=== PATIENT | female | born 1965 ===

== ENCOUNTER 2022-10-22 13:10 | Emergency (ER) | payer OTHER ==
[2022-10-22] MEDS ORDERED: FENTANYL CITR 100 MCG/2 ML ONE (14:22)
[2022-10-22 14:35] LABS: Absolute Lymphocytes (CBC) 2.3 K/uL (0.7-4.9); Hematocrit 41.9 % (36.0-45.0); Lymphocytes % 26.7 % (15.3-44.8); MCV 90.7 fL (80-100); MPV 7.6 fL (7.6-11.3); RBC Red Blood Cell Count 4.62 M/uL (3.86-4.86)
[2022-10-22 14:47] LABS: Potassium 3.4 mEq/L (3.5-5.1); Troponin High Sensitivity 6.4 pg/mL (<58.9)
--- NOTE | 2022-10-22 14:51 | RAD REPORT ---
EXAM DESCRIPTION: RAD - Chest Single View - 10/22/2022 2:44 pm CLINICAL HISTORY: CHEST PAIN Chest pain. COMPARISON: No comparisons FINDINGS: Portable technique limits examination quality. The lungs are emphysematous but grossly clear. Soft tissue fullness is seen in the left hilar region. The heart is normal in size. Dual lead pacer device is present. IMPRESSION: COPD with soft tissue fullness in the left hilar region. CT chest followup would be help ful.
[2022-10-22] MEDS ORDERED: ALBUTEROL 2.5 MG/3 ML NEB SOL ONE (17:40)
[2022-10-22] MEDS ORDERED: IPRATROPIUM BROM 0.5MG/2.5ML ONE (17:42)
[2022-10-22] MEDS ORDERED: METHYLPREDNISOLONE 125 MG INJ ONE (17:56)
--- NOTE | 2022-10-22 18:21 | ER ---
Nurse's Notes [facility] Name: Zeny Tomlinson Age: 57 yrs Sex: Female : 1965 Arrival Date: 10/22/2022 Time: 13:10 Bed 16 Private MD: Diagnosis: Radiculopathy, cervical region;COPD/ Chronic obstructive pulmonary disease with (acute) exacerbation Presentation: 10/22 13:34 Chief complaint: Patient states: CP that radiates down R arm for 3-4 days. R hand is ll1 numb. Coronavirus screen: Vaccine status: Patient reports being unvaccinated. Client denies travel out of the [place] in the last 14 days. cough unrelated to allergies. Ebola Screen: Patient denies travel to an Ebola-affected area in the 21 days before illness onset. Initial Sepsis Screen: Does the patient meet any 2 criteria? No. Patient's initial sepsis screen is negative. Does the patient have a suspected source of infection? No. Patient's initial sepsis screen is negative. Risk Assessment: Do you want to hurt yourself or someone else? Patient reports no desire to harm self or others. Onset of symptoms was October 18, 2022. 13:34 Method Of Arrival: Ambulatory ll1 13:34 Acuity: MARCELLO 2 ll1 Triage Assessment: 13:40 General: Appears uncomfortable, Behavior is calm, cooperative, appropriate for age. ll1 Pain: Complains of pain in chest. Cardiovascular: Reports chest pain. Historical: - Allergies: 13:35 No Known Allergies; ll1 - PMHx: 13:35 COPD; ll1 - PSHx: 13:35 pacemaker; neck SX; ll1 - Immunization history:: Client reports having NOT received the Covid vaccine. - Social history:: Smoking status: Patient reports the use of cigarette tobacco products, smokes one-half pack cigarettes per day. Screenin:24 [facility] ED Fall Risk Assessment (Adult) History of falling in the last 3 months, nj1 including since admission No falls in past 3 months (0 pts) Confusion or Disorientation No (0 pts) Intoxicated or Sedated No (0 pts) Impaired Gait No (0 pts) Mobility Assist Device Used No (0 pt) Altered Elimination No (0 pt) Score/Fall Risk Level 0 - 2 = Low Risk Oriented to surroundings, Maintained a safe environment, Hourly rounding (assess needs \T\ fall precautionary measures) done. Abuse screen: Denies threats or abuse. Denies injuries from another. Nutritional screening: No deficits noted. Tuberculosis screening: No symptoms or risk factors identified. Assessment: 14:15 Reassessment: See triage assessment. nj1 15:00 Reassessment: Patient appears in no apparent distress at this time. Patient and/or nj1 family updated on plan of care and expected duration. Pain level reassessed. Patient is alert, oriented x 3, equal unlabored respirations, skin warm/dry/pink. 16:00 Reassessment: Patient appears in no apparent distress at this time. Patient and/or nj1 family updated on plan of care and expected duration. Pain level reassessed. Patient is alert, oriented x 3, equal unlabored respirations, skin warm/dry/pink. 17:45 Reassessment: Patient appears in no apparent distress at this time. Patient and/or nj1 family updated on plan of care and expected duration. Pain level reassessed. Patient is alert, oriented x 3, equal unlabored respirations, skin warm/dry/pink. Vital Signs: 13:34 BP 124 / 85; Pulse 103; Resp 20; Temp 97.8; Pulse Ox 100% ; Weight 54.43 kg; Height 5 ll1 ft. 4 in. ; Pain 10/10; 14:07 BP 135 / 82; Pulse 83; Resp 18; Pulse Ox 99% on R/A; nj1 15:00 Pain 8/10; nj1 15:06 BP 136 / 86; Pulse 78; Resp 15; Pulse Ox 96% ; nj1 15:59 BP 118 / 79; Pulse 82; Resp 16; Pulse Ox 95% ; Pain 8/10; nj1 17:45 BP 135 / 84; Pulse 82; Resp 19; Pulse Ox 100% on R/A; Pain 9/10; nj1 18:25 BP 139 / 84; Pulse 99; Resp 19; Pulse Ox 97% ; nj1 13:34 Body Mass Index 20.60 (54.43 kg, 162.56 cm) ll1 13:34 Pain Scale: Adult ll1 15:00 Pain Scale: Adult nj1 15:59 Pain Scale: Adult nj1 17:45 Pain Scale: Adult dc1 ED Course: 13:16 Patient arrived in ED. kj1 13:28 Shayy Gaspar NP is PHCP. aj3 13:28 Kale Espinal DO is Attending Physician. aj3 13:35 Triage completed. ll1 13:36 Arm band placed on. ll1 14:06 Nanci Coelho, RN is Primary Nurse. nj1 14:15 Inserted saline lock: 20 gauge in left antecubital area, using aseptic technique. Blood nj1 collected. 14:25 Provided Education on: fall precautions. nj1 14:25 Patient has correct armband on for positive identification. Bed in low position. Call [facility] light in reach. 14:45 XRAY Chest (1 view) In Process Unspecified. EDMS Administered Medications: 14:17 Drug: fentaNYL (PF) IVP 50 mcg Route: IVP; Site: left antecubital; nj1 15:00 Follow up: Pain 8/10 Adult; Response: No adverse reaction; Pain is decreased nj1 17:45 Drug: DuoNeb Nebulize (3:1) (2.5 mg - 0.5 mg) 3 ml Route: Nebulizer; dc1 17:45 Drug: MethylPrednisoLONE IVP 125 mg Route: IVP; Site: left antecubital; [facility] Outcome: 18:21 Discharge ordered by . aj3 19:43 Patient left the ED. Signatures: Dispatcher [employer] EDMS Ivy Gregory RN RN Caren Dinh kj1 Dewey Chung RN RN [facility] Shayy Gaspar NP PRINCIPAL ELECTRICAL ENGINEER aj3 Nanci Coelho, RN RN nj1 Corrections: (The following items were deleted from the chart) 16:00 15:59 BP 118 / 79; Pulse 82bpm; Resp 16bpm; Pulse Ox 95%; nj1 nj1 17:51 17:45 MethylPrednisoLONE IVP 125 mg IVP in right antecubital nj nj1
--- NOTE | 2022-10-22 18:22 | EDPHYS ---
Physician Documentation [facility] Name: Zeny Tomlinson Age: 57 yrs Sex: Female : 1965 Arrival Date: 10/22/2022 Time: 13:10 Bed 16 Private MD: ED Physician Kale Espinal HPI: 10/22 13:45 This 57 yrs old Female presents to ER via Ambulatory with complaints of Numbness - aj3 RIGHT ARM ,PAIN ALL OVER. 13:45 Patient is reporting pain to right side chest, shoulder and right arm has been hurting aj3 since this morning. She denies any shortness of breath, dizziness, nausea/vomiting, syncope.. Historical: - Allergies: 13:35 No Known Allergies; ll1 - PMHx: 13:35 COPD; ll1 - PSHx: 13:35 pacemaker; neck SX; ll1 - Immunization history:: Client reports having NOT received the Covid vaccine. - Social history:: Smoking status: Patient reports the use of cigarette tobacco products, smokes one-half pack cigarettes per day. ROS: 13:45 Constitutional: Negative for fever, chills, and weight loss. aj3 13:45 Respiratory: Negative for shortness of breath, cough, wheezing, and pleuritic chest pain, Skin: Negative for injury, rash, and discoloration, Neuro: Negative for syncope, headache, weakness, numbness, tingling, and seizure. 13:45 Neck: Positive for pain at rest. 13:45 Cardiovascular: Positive for chest pain, Negative for edema, orthopnea, palpitations. 13:45 MS/extremity: Positive for pain, Right arm. Exam: 13:45 Neck: Supple, full range of motion without nuchal rigidity. Cardiovascular: Regular aj3 rate and rhythm with a normal S1 and S2. No gallops, murmurs, or rubs. Normal PMI, no JVD. No pulse deficits. Respiratory: Lungs have equal breath sounds bilaterally, clear to auscultation and percussion. No rales, rhonchi or wheezes noted. No increased work of breathing, no retractions or nasal flaring. Skin: Warm, dry with normal turgor. Normal color with no rashes, no lesions, and no evidence of cellulitis. MS/ Extremity: Pulses equal, no cyanosis. Neurovascular intact. Full, normal range of motion. Neuro: Awake and alert, GCS 15, oriented to person, place, time, and situation. Motor strength 5/5 in all extremities. Sensory grossly intact. Normal gait. 13:45 Constitutional: The patient appears alert, awake, non-toxic, uncomfortable. 13:45 Chest/axilla: Palpation: tenderness, that is mild, Right chest. 17:48 ECG was reviewed by the Attending Physician. aj3 Vital Signs: 13:34 BP 124 / 85; Pulse 103; Resp 20; Temp 97.8; Pulse Ox 100% ; Weight 54.43 kg; Height 5 ll1 ft. 4 in. ; Pain 10/10; 14:07 BP 135 / 82; Pulse 83; Resp 18; Pulse Ox 99% on R/A; nj1 15:00 Pain 8/10; nj1 15:06 BP 136 / 86; Pulse 78; Resp 15; Pulse Ox 96% ; nj1 15:59 BP 118 / 79; Pulse 82; Resp 16; Pulse Ox 95% ; Pain 8/10; nj1 17:45 BP 135 / 84; Pulse 82; Resp 19; Pulse Ox 100% on R/A; Pain 9/10; nj1 18:25 BP 139 / 84; Pulse 99; Resp 19; Pulse Ox 97% ; nj1 13:34 Body Mass Index 20.60 (54.43 kg, 162.56 cm) ll1 13:34 Pain Scale: Adult ll1 15:00 Pain Scale: Adult nj1 15:59 Pain Scale: Adult nj1 17:45 Pain Scale: Adult nj1 MDM: 13:45 Differential diagnosis: STEMI, NSTEMI, cervical radiculopathy, neuropathy, pneumonia, aj3 COPD exacerbation. Data reviewed: vital signs, nurses notes, lab test result(s), radiologic studies, plain films. Independent interpretation of the following test(s) in the Emergency Department EKG: See my EKG interpretation above X-Ray: My interpretation is No opacities noted. Care significantly affected by the following chronic conditions: Chronic Obstructive Pulmonary Disease. Counseling: I had a detailed discussion with the patient and/or guardian regarding: the historical points, exam findings, and any diagnostic results supporting the discharge/admit diagnosis, the need for outpatient follow up, to return to the emergency department if symptoms worsen or persist or if there are any questions or concerns that arise at home. 13:58 Patient medically screened. 10/22 14:00 Order name: Basic Metabolic Panel; Complete Time: 15:19 10/22 14:00 Order name: CBC with Diff; Complete Time: 15:19 10/22 14:00 Order name: Troponin HS; Complete Time: 15:19 10/22 16:24 Order name: Troponin HS; Complete Time: 18:12 10/22 14:00 Order name: XRAY Chest (1 view); Complete Time: 15:19 10/22 14:00 Order name: EKG; Complete Time: 14:01 10/22 14:00 Order name: Cardiac monitoring; Complete Time: 14:06 10/22 14:00 Order name: EKG - Nurse/Tech; Complete Time: 14:06 10/22 14:00 Order name: IV Saline Lock; Complete Time: 14:23 10/22 14:00 Order name: Labs collected and sent; Complete Time: 14:10/22 14:00 Order name: O2 Per Protocol; Complete Time: 14:10/22 14:00 Order name: O2 Sat Monitoring; Complete Time: 14:06 EC:49 Rate is 80 beats/min. Rhythm is regular, Paced. Clinical impression: Atrial pacemaker, aj3 normal MO interval, normal QTc, normal axis, no ST elevation or depression, no T wave inversion. Interpreted by me. Reviewed by me. Administered Medications: 14:17 Drug: fentaNYL (PF) IVP 50 mcg Route: IVP; Site: left antecubital; nj 15:00 Follow up: Pain 8/10 Adult; Response: No adverse reaction; Pain is decreased nj1 17:45 Drug: DuoNeb Nebulize (3:1) (2.5 mg - 0.5 mg) 3 ml Route: Nebulizer; nj1 17:45 Drug: MethylPrednisoLONE IVP 125 mg Route: IVP; Site: left antecubital; nj1 Disposition: 17:50 Co-signature as Attending Physician, Kale PEDRO was immediately available on-site ms3 in the Emergency Department for consultation in the care of the patient. Disposition Summary: 10/22/22 18:21 Discharge Ordered Location: Home aj3 Problem: new aj3 Symptoms: have improved aj3 Condition: Stable aj3 Diagnosis - Radiculopathy, cervical region aj3 - COPD/ Chronic obstructive pulmonary disease with (acute) exacerbation aj3 Followup: aj3 - With: Private Physician - When: - Reason: Recheck today's complaints, Re-evaluation by your physician Discharge Instructions: - Discharge Summary Sheet aj3 - Cervical Radiculopathy aj3 Forms: - Medication Reconciliation Form aj3 - Thank You Letter aj3 - Antibiotic Education aj3 - Prescription Opioid Use aj3 - Patient Portal Instructions aj3 Prescriptions: - gabapentin 100 mg Oral capsule - take 1 capsule by ORAL route 3 times per day; 30 capsule; Refills: 0, Product aj3 Selection Permitted - Prednisone 20 mg Oral Tablet - take 2 tablets by ORAL route once daily for 5 days; 10 tablet; Refills: 0, aj3 Product Selection Permitted - methocarbamol 500 mg Oral Tablet - take 2 tablets by ORAL route 2 times per day; 20 tablet; Refills: 0, Product aj3 Selection Permitted Signatures: Dispatcher [employer] EDMS Dewey Chung, RN RN ll1 Kale Espinal, DO ms3 Shayy Gaspar, BATTERY TEST ENGINEER BATTERY TEST ENGINEER aj3 Nanci Coelho RN RN nj1 Corrections: (The following items were deleted from the chart) 20:20 14:00 This 57 yrs old Female presents to ER via Ambulatory with complaints of Numbness aj3 - RIGHT ARM ,PAIN ALL OVER. aj3
[2022-10-22 19:49] VITALS: TEMP 97.8
[2022-10-22 19:58] VITALS: BP 139/84; O2SAT 97
--- NOTE | 2022-10-23 13:11 | EKG ---
Test Date: 2022-10-22 Test Time: 13:49:45 [employer]: SUMIT MEASUREMENT RESULTS: Intervals: Rate: 80 OK: 116 QRSD: 78 QT: 368 QTc: 424 Herman: P: 59 OK: 116 QRS: 8 T: 67 INTERPRETIVE STATEMENTS: Electronic atrial pacemaker Septal infarct, age undetermined Abnormal ECG Compared to ECG 11/23/1993 06:55:00 Myocardial infarct finding now present Sinus rhythm no longer present Electronically Signed On 10-23-22 13:10:19 CDT by Jimmy Preciado
== END 2022-10-22 19:43 | disposition home or self-care (01) ==
LOC: ER 13:10
DX: M54.12 Radiculopathy, cervical region (principal); J44.1 Chronic obstructive pulmonary disease with (acute) exacerbation; F17.210 Nicotine dependence, cigarettes, uncomplicated; Z95.0 Presence of cardiac pacemaker
CPT/HCPCS: 93005; 85025; 80048; 36415; 84484 ×2; 71045; 94640; 96375; 96374; 99284; J7613; J7644; J3010; J2930

== ENCOUNTER 2022-11-05 16:06 | Emergency (ER) | payer OTHER ==
--- OUTSIDE RECORDS SUMMARY | 2022-11-05 16:18 | XMS REPORT | Continuity of Care Document ---
:1965 Author Organization [facility] t Address [address] [place] [address] [address] [place] [address] Care Team Providers Name Role Phone SUNI MCCLAIN Primary Care Physician Unavailable OMER RM Attending Clinician Unavailable OMER RM Attending Clinician Unavailable TINY ABDALLA Attending Clinician Unavailable TINY ABDALLA Attending Clinician Unavailable Gumaro Kaminski MD Attending Clinician NEGRO DE LEON Attending Clinician Unavailable GUMARO KAMINSKI Attending Clinician Unavailable MANJU MERCHANT Attending Clinician Unavailable Pob, Adc Lab Main Attending Clinician Unavailable Lamar Adhikari MD Attending Clinician LAMAR ADHIKARI Attending Clinician Unavailable Doctor Unassigned, [facility] Attending Clinician Unavailable Omer Rm DO Attending Clinician Mandeep Brooks MD Attending Clinician MANDEEP BROOKS Attending Clinician Unavailable MANDEEP BROOKS Attending Clinician Unavailable Mabel Ayon NP Attending Clinician MABEL AYON Attending Clinician Unavailable 2, Adc Lab Attending Clinician Unavailable Unknown, Attending Attending Clinician Unavailable Only, Adc Test Attending Clinician Unavailable Negro De Leon MD Attending Clinician GUMARO KAMINSKI Admitting Clinician Unavailable MABEL AYON Admitting Clinician Unavailable Payers Payer Name Policy Type Policy Number Effective Date Expiration Date S caterina [facility] [id number] 2021 PLUS 00:00:00 MEDICAID OF [place] [id number] 2021 00:00:00 Problems Condition Condition Condition Status Onset Resolution Last Treating Co mments Source Name Details Category Date Date Treatment Clinician Date Abdominal Abdominal Disease Active Uni vers pain, pain, 8-23 ity of right right 00:00: [place] lower lower 00 Medical quadrant quadrant Branch Pain Pain Disease Active Univers pelvic pelvic 10-20 ity of 00:00: [place] [facility] Post-menop Post-menop Disease Active U nivers ausal ausal 10-20 ity of bleeding bleeding 00:00: [place] [facility] Anxiety Anxiety Disease Active Overview: Univ ers 7 Formattin ity of 00:00: g of this [place] note Medical might be Branch different from the original. Formattin g of this note might be different from the original. Does not wish to start any meds at this time. Discussed breathing exercises and perhaps Calm Velia for assistanc e with meditatio n Smoker Smoker Disease Active Univers 09-22 ity of 00:00: [place] [facility] Chronic Chronic Disease Active Overview: Univ ers obstructiv obstructiv 09-22 Formattin ity of e e 00:00: g of this [place] pulmonary pulmonary 00 note Medi amanda disease disease might be Branch different from the original. Formattin g of this note might be different from the original. Info on Referral for pulmonolo gy given Chronic Chronic Disease Active Univers fatigue fatigue 08-20 ity of 00:00: [place] [address] Medical Branch Allergies, Adverse Reactions, Alerts Allergy Allergy Status Severity Reaction(s) Onset Inactive Treating Comm ents Source Name Type Date Date Clinician NO KNOWN Drug Active Univers ALLERGIE Class ity of S [facility] Social History Social Habit Start Date Stop Date Quantity Comments Source History of 1978-03-27 Cigarette Smoker Universi ty of tobacco use 00:00:00 [place] [facility] History [place] University o f Alcohol Frequency [place] M edical [facility] History [place] University o f Alcohol Std [place] Medical Drinks Branch History [facility] University o f Alcohol Binge [place] Medic al Branch Exposure to 2021-12-04 2021-12-14 Not sure University of SARS-CoV-2 00:00:00 09:06:00 [place] Medical (event) Branch Alcohol intake 2021-12-14 2021-12-14 Current drinker of Un iversity of 00:00:00 00:00:00 alcohol (finding) [facility] Cigarettes smoked 2021-10-18 2021-10-18 Univers ity of current (pack per 00:00:00 00:00:00 [facility]) - Reported Branch Tobacco use and 2021-10-18 2021-10-18 Smokeless tobacco Un iversity of exposure 00:00:00 00:00:00 non-user [facility] Alcohol Comment 2021-10-18 2021-10-18 occasionally Univers ity of 00:00:00 00:00:00 [facility] Sex Ass[birth year] At [birth year] Universit y of 00:00:00 00:00:00 [facility] Smoking Status Start Date Stop Date Source Smokes tobacco daily 2021-10-18 00:00:00 Univers ity of [facility] Medications Ordered Filled Start Stop Current Ordering Indication Dosage Frequency Signature Comments Components Source Medication Medication Date Date Medication? Clinician (SIG) Name Name ipratropium Yes [id number] 3mL Inhale 3 Univers -albuteroL 9-20 mL every 6 ity of 0.5 mg-3 00:00: (six) [place] mg(2.5 mg 00 hours as Medica l base)/3 mL needed for Bra nch nebulizer Wheezing. solution ipratropium 2021-0 Yes [id number] 3mL Inhale 3 Univers -albuteroL 9-20 mL every 6 ity of 0.5 mg-3 00:00: (six) [place] mg(2.5 mg 00 hours as Medica l base)/3 mL needed for Bra nch nebulizer Wheezing. solution ipratropium 2021-0 Yes [id number] 3mL Inhale 3 Univers -albuteroL 9-20 mL every 6 ity of 0.5 mg-3 00:00: (six) [place] mg(2.5 mg 00 hours as Medica l base)/3 mL needed for Bra nch nebulizer Wheezing. solution ipratropium 2021-0 Yes [id number] 3mL Inhale 3 Univers -albuteroL 9-20 mL every 6 ity of 0.5 mg-3 00:00: (six) [place] mg(2.5 mg 00 hours as Medica l base)/3 mL needed for Bra nch nebulizer Wheezing. solution ipratropium 2021-0 Yes [id number] 3mL Inhale 3 Univers -albuteroL 9-20 mL every 6 ity of 0.5 mg-3 00:00: (six) [place] mg(2.5 mg 00 hours as Medica l base)/3 mL needed for Bra nch nebulizer Wheezing. solution ipratropium 2022-0 Yes [id number] 3mL Inhale 3 Univers -albuteroL 9-20 mL every 6 ity of 0.5 mg-3 00:00: (six) [place] mg(2.5 mg 00 hours as Medica l base)/3 mL needed for Bra nch nebulizer Wheezing. solution atorvastati 2022-0 Yes 10mg Take 10 mg Univers n 10 mg 9-02 by mouth ity of tablet 08:07: at [place] [address] bedtime. Medical Branch methocarbam 2022-0 Yes 500mg Take 500 U nivers oL 500 mg 9-02 mg by ity of tablet 08:07: mouth 4 [place] [address] [address]) Medical times [place] daily. atorvastati 2022-0 Yes 10mg Take 10 mg Univers n 10 mg 9-02 by mouth ity of tablet 08:07: at [place] [address] bedtime. Medical Branch methocarbam 2022-0 Yes 500mg Take 500 U nivers oL 500 mg 9-02 mg by ity of tablet 08:07: mouth 4 [place] [address] [address]) Medical times [place] daily. atorvastati 2022-0 Yes 10mg Take 10 mg Univers n 10 mg 9-02 by mouth ity of tablet 08:07: at [place] [address] bedtime. Medical Branch methocarbam 2022-0 Yes 500mg Take 500 U nivers oL 500 mg 9-02 mg by ity of tablet 08:07: mouth 4 [place] [address] [address]) Medical times Branch daily. atorvastati 2022-0 Yes 10mg Take 10 mg Univers n 10 mg 9-02 by mouth ity of tablet 08:07: at [place] [address] bedtime. Medical Branch methocarbam 2022-0 Yes 500mg Take 500 U nivers oL 500 mg 9-02 mg by ity of tablet 08:07: mouth 4 [place] [address] [address]) Medical times Branch daily. atorvastati 2022-0 Yes 10mg Take 10 mg Univers n 10 mg 9-02 by mouth ity of tablet 08:07: at [place] [address] bedtime. Medical Branch methocarbam 2022-0 Yes 500mg Take 500 U nivers oL 500 mg 9-02 mg by ity of tablet 08:07: mouth 4 [place] [address] (four) Medical times Branch daily. atorvastati 2022-0 Yes 10mg Take 10 mg Univers n 10 mg 9-02 by mouth ity of tablet 08:07: at [place] [address] bedtime. Medical Branch methocarbam 2022-0 Yes 500mg Take 500 U nivers oL 500 mg 9-02 mg by ity of tablet 08:07: mouth 4 [place] [address] (four) Medical times Branch daily. atorvastati 2022-0 Yes 10mg Take 10 mg Univers n 10 mg 9-02 by mouth ity of tablet 08:07: at [place] [address] bedtime. Medical Branch methocarbam 2022-0 Yes 500mg Take 500 U nivers oL 500 mg 9-02 mg by ity of tablet 08:07: mouth 4 [place] [address] [address]) Medical times Branch daily. atorvastati 2022-0 Yes 10mg Take 10 mg Univers n 10 mg 9-02 by mouth ity of tablet 08:07: at [place] [address] bedtime. Medical Branch methocarbam 2022-0 Yes 500mg Take 500 U nivers oL 500 mg 9-02 mg by ity of tablet 08:07: mouth [address] [place] [address] [address]) Medical times Branch daily. PROAIR HFA 2021-0 Yes INHALE 2 Uni vers 90 7-20 PUFFS BY ity of mcg/actuati 00:00: MOUTH [place] on inhaler 00 EVERY 6 Medica l HOURS Branch NEEDED FOR WHEEZING PROAIR HFA 2021-0 Yes INHALE 2 Uni vers 90 7-20 PUFFS BY ity of mcg/actuati 00:00: MOUTH [place] on inhaler 00 EVERY 6 Medica l HOURS Branch NEEDED FOR WHEEZING PROAIR HFA 2021-0 Yes INHALE 2 Uni vers 90 7-20 PUFFS BY ity of mcg/actuati 00:00: MOUTH [place] on inhaler 00 EVERY 6 Medica l HOURS Branch NEEDED FOR WHEEZING PROAIR HFA 2021-0 Yes INHALE 2 Uni vers 90 7-20 PUFFS BY ity of mcg/actuati 00:00: MOUTH [place] on inhaler 00 EVERY 6 Medica l HOURS Branch NEEDED FOR WHEEZING PROAIR HFA 2022-0 Yes INHALE 2 Uni vers 90 7-20 PUFFS BY ity of mcg/actuati 00:00: MOUTH [place] on inhaler 00 EVERY 6 Medica l HOURS Branch NEEDED FOR WHEEZING PROAIR HFA 0 Yes INHALE 2 Uni vers 90 7-20 PUFFS BY ity of mcg/actuati 00:00: MOUTH [place] on inhaler 00 EVERY 6 Medica l HOURS Branch NEEDED FOR WHEEZING PROAIR HFA 0 Yes INHALE 2 Uni vers 90 7-20 PUFFS BY ity of mcg/actuati 00:00: MOUTH [place] on inhaler 00 EVERY 6 Medica l HOURS Branch NEEDED FOR WHEEZING PROAIR HFA 0 Yes INHALE 2 Uni vers 90 7-20 PUFFS BY ity of mcg/actuati 00:00: MOUTH [place] on inhaler 00 EVERY 6 Medica l HOURS Branch NEEDED FOR WHEEZING budesonide- 0 Yes 2{puff} Inhale 2 Univers formoteroL 5-27 Puffs 2 ity of 80-4.5 09:25: (two) [place] mcg/actuati 53 times Medical on inhaler daily. Branch budesonide- 2021-0 Yes 2{puff} Inhale 2 Univers formoteroL 5-27 Puffs 2 ity of 80-4.5 09:25: (two) [place] mcg/actuati 53 times Medical on inhaler daily. Branch budesonide- 2021-0 Yes 2{puff} Inhale 2 Univers formoteroL 5-27 Puffs 2 ity of 80-4.5 09:25: (two) [place] mcg/actuati 53 times Medical on inhaler daily. Branch budesonide- 2021-0 Yes 2{puff} Inhale 2 Univers formoteroL 5-27 Puffs 2 ity of 80-4.5 09:25: (two) [place] mcg/actuati 53 times Medical on inhaler daily. Branch budesonide- 2021-0 Yes 2{puff} Inhale 2 Univers formoteroL 5-27 Puffs 2 ity of 80-4.5 09:25: (two) [place] mcg/actuati 53 times Medical on inhaler daily. Branch budesonide- 2021-0 Yes 2{puff} Inhale 2 Univers formoteroL 5-27 Puffs 2 ity of 80-4.5 09:25: (two) [place] mcg/actuati 53 times Medical on inhaler daily. Branch budesonide- 2021-0 Yes 2{puff} Inhale 2 Univers formoteroL 5-27 Puffs 2 ity of 80-4.5 09:25: (two) [place] mcg/actuati 53 times Medical on inhaler daily. Branch budesonide- 2021-0 Yes 2{puff} Inhale 2 Univers formoteroL 5-27 Puffs 2 ity of 80-4.5 09:25: (two) [place] mcg/actuati 53 times Medical on inhaler daily. Branch Vital Signs Vital Name Observation Time Observation Value Comments Source Systolic blood 2021-12-14 14:38:00 124 mm[Hg] Univer sity of [facility] Diastolic blood 2021-12-14 14:38:00 84 mm[Hg] Unive rsity of [facility] Heart rate 2021-12-14 14:38:00 87 /min Universi ty [facility] Respiratory rate 2021-12-14 14:38:00 21 /min Univ ersity of [facility] Body height 2021-12-14 14:38:00 162.6 cm Universi ty [facility] Body weight 2021-12-14 14:38:00 56.201 kg Universi ty [facility] BMI 2021-12-14 14:38:00 21.27 kg/m2 Universi ty [facility] Oxygen saturation in 2021-12-14 14:38:00 98 /min [facility] Arterial blood by [facility] Pulse oximetry Branch Systolic blood 2021-12-03 13:13:00 125 mm[Hg] Univer sity of [facility] Diastolic blood 2021-12-03 13:13:00 83 mm[Hg] Unive rsity of [facility] Heart rate 2021-12-03 13:13:00 86 /min Universi ty of [facility] Body height 2021-12-03 13:13:00 162.6 cm Universi ty [facility] Body weight 2021-12-03 13:13:00 57.607 kg Universi ty [facility] BMI 2021-12-03 13:13:00 21.80 kg/m2 Universi ty [facility] Oxygen saturation in 2021-12-03 13:13:00 97 /min University Arterial blood by [facility] Pulse oximetry Branch Procedures Procedure Date / Time Performing Clinician Source Performed CONSENT/REFUSAL FOR 2021-12-29 15:34:54 Doctor Unassvanessa [facility] DIAGNOSIS AND TREATMENT [facility] [place] INSURANCE CORRESPONDENCE 2021-12-14 05:01:00 Doctor Unassigned, [facility] [place] Encounters Start End Encounter Admission Attending Care Care Encounter Source Date/Time Date/Time Type Type Clinicians Facility Department ID 2022-11-08 2022-11-08 Outpatient R OMER RM [facility] [id number] Univers 10:00:00 10:00:00 OMER RM i ty of [facility] 2022-10-06 2022-10-06 Outpatient R TINY ABDALLA [facility] [id number] Univers 14:20:00 14:20:00 [facility]BDALLA [facility] [place] [facility] 2022-08-31 2022-08-31 [facility] [id number] Univers 00:00:00 00:00:00 [facility] [id number] i angy [facility] [id number] Jill ENGIO [phone] [address] 2022-03-22 2022-03-22 Outpatient R OMER RM [facility] [id number] Univers 10:30:00 10:30:00 OMER RM i ty [facility] 2022-02-21 2022-02-21 Outpatient R MOISES [facility] [id number] Univers 10:00:00 10:00:00 NEGRO marte o f [facility] 2022-02-04 2022-02-04 Outpatient R GORDY [facility] [id number] Univers 09:00:00 09:00:00 GUMARO rosanna [facility] 2022-02-03 2022-02-03 Outpatient R GORDY [facility] [id number] Univers 09:40:00 09:40:00 GUMARO ity [facility] 2022-01-04 2022-01-04 Outpatient Mindy MERCHANT [facility] [id number] Univers 11:00:00 11:00:00 MANJU marte [facility] 2022-01-03 2022-01-03 Outpatient Mindy MERCHANT [facility] [id number] Univers 09:00:00 09:00:00 MANJU marte [facility] 2021-12-29 2021-12-29 [employer] Assembler Janett, Adc Lab Main [facility] [id number] Univers 10:45:00 11:00:00 Visit Onofre Lamar NGO [id number] ity of [id number] [id number] Md dical NAL 353 [facility] 2021-12-29 2021-12-29 Outpatient R ONOFRE [facility] [id number] Univers 10:45:00 10:45:00 LAMAR marte [facility] 2021-12-29 2021-12-29 Orders Doctor HYATT [id number] Univers 00:00:00 00:00:00 Only Unassigned, [place] [id number] ity [facility] [id number] [place] as [id number] [address] 2021-12-14 2021-12-14 Outpatient R OMER RM [facility] [id number] Univers 09:30:00 09:57:13 OMER RM i ty of [facility] 2021-12-14 2021-12-14 Office Adtii [facility] [id number] Univers 09:30:00 09:57:13 Visit Omer NGO [id number] i ty [facility] [id number] [id number] Md dical NAL 085 [facility] 2021-12-14 2021-12-14 Outpatient R OMER RM [facility] 10 [id number] Univers 09:30:00 09:30:00 OMER RM i ty of [facility] 2021-12-14 2021-12-14 Orders Doctor EDMAR [id number] Univers 00:00:00 00:00:00 Only Unassigned, [place] [id number] ity of [facility] [id number] [place] as [id number] [address] 2021-12-13 2021-12-13 Telephone Cecilia [facility] [id number] Univers 00:00:00 00:00:00 [facility] [id number] ity of [place] [id number] Jameson as SCARLETT?BLEA [id number] [address] OFFICE [facility] 2021-12-03 2021-12-03 Office Cecilia [facility] [id number] Univers 08:00:00 08:43:44 Visit [facility] [id number] ity of [place] [id number] Jameson as SCARLETT?BLEA [id number] [address] OFFICE [facility] 2021-12-03 2021-12-03 Outpatient R MANDEEP BROOKS [facility] [id number] Univers 08:00:00 08:43:44 MANDEEP BROOKS [facility] 2021-12-03 2021-12-03 Outpatient R MANDEEP BROOKS [facility] [id number] Univers 08:00:00 08:00:00 MANDEEP BROOKS [facility] 2021-11-26 2021-11-26 Outpatient Mindy KAMINSKI [facility] [id number] Univers 08:00:00 08:28:35 GUMARO [facility] 2021-11-26 2021-11-26 Office [facility] [id number] Univers 08:00:00 08:28:35 Visit [facility] [id number] i ty of [facility] [id number] [id number] [place] [address] [facility] 2021-11-19 2021-11-19 Outpatient Mindy KAMINSKI [facility] [id number] Univers 09:20:00 09:20:00 GUMARO ity of [facility] 2021-11-15 2021-11-15 [facility] [id number] Univers 15:15:00 15:15:00 Visit Mabel TORRES [id number] it y of [facility] [id number] [facility] [id number] [facility] CLINIC 134 Branch 2021-11-15 2021-11-15 Outpatient R SHIRAMABEL RAYMOND [facility] B [id number] Univers 15:15:00 15:13:51 [facility] BRIGHT rosanna [facility] 2021-11-12 2021-11-12 Outpatient R GORDY [facility] [id number] Univers 08:44:31 23:59:00 GUMARO ity [facility] 2021-11-12 2021-11-12 Outpatient R GORDY [facility] [id number] Univers 08:44:31 23:59:00 GUMARO ity of [facility] 2021-11-12 2021-11-12 Outpatient R GORDY [facility] [id number] Univers 09:20:00 09:20:00 GUMARO ity [facility] 2021-11-09 2021-11-09 Outpatient R MABEL AYON [facility] B [id number] Univers 14:53:12 23:59:00 [facility] BRIGHT kelvinhalie [facility] 2021-11-09 2021-11-09 [facility] [id number] Univers 14:53:12 23:59:00 Encounter Mabel HUBER [id number] ity of [place] [id number] [facility] [id number] [facility] 806 Branch 2021-11-05 2021-11-05 Outpatient R OMER RM [facility] 10 [id number] Univers 11:00:00 11:00:00 OMER RM i [facility] 2021-11-02 2021-11-02 [facility] 1.2.840.114 [id number] Univers 17:03:29 23:59:00 Encounter Mabel NGO [id number] ity of [place] [id number] [facility] [id number] [facility] 806 Branch 2021-11-02 2021-11-02 Outpatient R MABEL AYON [facility] B [id number] Univers 00:00:00 23:59:00 TRIMABEL TILLEY ity [facility] 2021-11-02 2021-11-02 Orders Doctor EDMAR [id number] [id number] Univers 00:00:00 00:00:00 Only Unassigned, [place] [id number] ity of [facility] [id number] [facility] [id number] [facility] 009 Branch 2021-10-18 2021-10-18 Outpatient R MABEL AYON [facility] B [id number] Univers 15:00:00 16:55:46 MABEL AYON ity [facility] 2021-10-18 2021-10-18 Office [facility] 1.2.840.114 [id number] Univers 15:00:00 16:55:46 Visit Floridatalat TORRES [id number] it y of [facility] [id number] [facility] [id number] [facility] 134 Branch 2021-10-12 2021-10-12 Outpatient R GORDY [facility] [id number] Univers 09:43:47 23:59:00 GUMARO ity of [facility] 2021-10-12 2021-10-12 [employer]er 2, Adc Lab [facility] 1.2.840.114 [id number] Univers 09:00:00 09:15:00 Visit Unknown, Attending HUBER [id number] 0 ity [facility] [id number] [facility] [phone] [address] 2021-10-11 2021-10-11 Laboratory Only, Adc Test [facility] 1.2.840. [id number] Univers 14:00:00 14:15:00 Only Lamar Adhikari HUBER [id number] ity of [place] [id number] [id number] [facility] [address] [place] 2021-10-11 2021-10-11 Outpatient R LEOAMBER [facility] [id number] Univers 14:00:00 14:00:00 LAMAR ithalie [facility] 2021-10-11 2021-10-11 Orders Doctor HYATT [id number] [id number] Univers 00:00:00 00:00:00 Only Unassigned, [place] [id number] ity of [facility] [id number] Jaemson as [id number] [facility] [address] [place] 2021-09-24 2021-09-24 Orders Doctor HYATT 1.2.840.114 [id number] Univers 00:00:00 00:00:00 Only Unassigned, [place] [id number] ity of [facility] [id number] Jameson as [id number] [address] 2021-09-17 2021-09-17 [facility] [id number] Univers 08:20:00 08:20:00 [facility] [place] [facility] 2021-08-20 2021-08-20 [employer] Assembler 2, Adc Lab [facility] 1.2.840.114 [id number] Univers 11:15:00 11:30:00 Visit Gumaro Kaminski [id number] ity of [place] [id number] [facility] [id number] [facility] [address] [facility] 2021-08-20 2021-08-20 Outpatient R GORDY [facility] [id number] Univers 11:15:00 11:15:00 GUMARO rosanna [facility] 2021-08-20 2021-08-20 [facility] [id number] Univers 09:40:00 09:44:29 [facility] [place] [facility] 2021-08-20 2021-08-20 Office Gordy [facility] 1.2.840.114 [id number] Univers 09:40:00 09:44:29 Visit [facility] [id number] i ty of [facility] [id number] [id number] Md dical NAL 9 [facility] 2021-08-20 2021-08-20 Outpatient R GORDY [facility] [id number] Univers 09:40:00 09:44:29 GUMARO ity [facility] 2021-08-13 2021-08-13 [facility] [id number] Univers 10:10:49 23:59:00 GUMARO ity [facility] 2021-04-09 2021-04-09 [facility] [id number] Univers 08:00:00 08:00:00 NEGRO cortez [facility] 2021-02-17 2021-02-17 Office [facility] [id number] Univers 09:44:24 10:13:40 Visit Negro [place] [id number] ity [facility] [id number] [id number] [address] 2021-02-17 2021-02-17 Outpatient R MOISES [facility] [id number] Univers 09:40:00 10:13:40 NEGRO cortez [facility] 2008-07-03 2008-07-03 Outpatient [facility] [id number] Univers 00:00:00 12:23:59 1 [facility] [place] [facility] This patient has no known results.
[2022-11-05 16:54] LABS: Absolute Lymphocytes (CBC) 2.7 K/uL (0.7-4.9); Hematocrit 32.9 % (36.0-45.0); Lymphocytes % 23.8 % (15.3-44.8); MPV 7.4 fL (7.6-11.3); Platelets 338 thou/uL (152-406); RBC Red Blood Cell Count 3.66 M/uL (3.86-4.86)
[2022-11-05] MEDS ORDERED: IPRATROPIUM BROM 0.5MG/2.5ML ONE ×2 (17:04→19:01)
[2022-11-05] MEDS ORDERED: ALBUTEROL 2.5 MG/3 ML NEB SOL ONE ×2 (17:04→19:00)
[2022-11-05 17:06] LABS: Albumin 2.9 g/dL (3.4-5.0); Bilirubin Direct 0.1 mg/dL (0-0.2); Bilirubin Indirect, Calculated 0.5 mg/dL (0.2-0.8); Bilirubin Total 0.6 mg/dL (0.2-1.0); Magnesium 2.1 mg/dL (1.6-2.4); Potassium 3.4 mEq/L (3.5-5.1); Protein, Total 6.1 g/dL (6.4-8.2); Troponin High Sensitivity 6.5 pg/mL (<58.9)
--- NOTE | 2022-11-05 17:08 | RAD REPORT ---
EXAM DESCRIPTION: RADChest Single View11/05/2022 4:54 pm CLINICAL HISTORY: SOB COMPARISON: Chest Single View dated 10/22/2022 TECHNIQUE: Portable AP view of the chest. FINDINGS: The lungs are clear.Left chest wall pacer/AICD unchanged in place. No pneumothorax or effu marcello. The cardiomediastinal contours are stable, with stable left hilar prominence, may relate to vas cular tortuosity. IMPRESSION: No acute cardiopulmonary process. Stable findings as above.
--- NOTE | 2022-11-05 18:19 | RAD REPORT ---
EXAM DESCRIPTION: CT - Chest For Pe Angio - 11/05/2022 5:35 pm CLINICAL HISTORY: Chest pain;SOB COMPARISON: Chest Single View dated 11/05/2022; Chest Single View dated 10/22/2022 TECHNIQUE: Thin axial CT images of the chest were obtained following administration of 100 mL Isovue 370 IV contrast. Multiplanar reconstructions, and maximum intensity projection reconstructions were generated and reviewed. Exam utilizes a protocol for optimal evaluation of pulmonary arterial tree. All CT scans are performed using dose optimization technique as appropriate and may include automated exposure control or mA/KV adjustment according to patient size. FINDINGS: Pulmonary arteries are normal. No emboli or other suspicious finding. No acute or signific ant aorta findings. Large left hilar mass with crescentic soft tissue extension along the lateral wall of the descending thoracic aorta, measuring 5.7 x 5.3 cm in greatest caliber. This is contiguous with subcarinal adenop athy, with dawna mass measuring up to 4.0 x 3.5 cm. Other enlarged PA window, prevascular, and medias tinal lymph nodes. There is some mass effect with mild narrowing of the left main bronchus, near comp lete attenuation of some of the bronchial branches to the left lower lobe and lower segments of the u pper lobe, and narrowing of the left inferior more than superior pulmonary veins. No other suspicious mass or infiltrate in the lung parenchyma. Bibasilar atelectatic changes, includi ng some atelectatic changes in the regions involved by bronchial narrowing. No pleural thickening or pleural effusion. No pneumothorax. No chest wall mass or abnormal axilliary lymphadenopathy. IMPRESSION: No evidence of acute central pulmonary emboli. Large left hilar mass, with contiguous mediastinal adenopathy as above. Findings raise concern for ma lignancy, including but not limited to lymphoma. There is mass effect with mild narrowing of the left main bronchus and some of its branches, with adrienne e distal atelectatic changes, as well as narrowing of the left lower more than upper pulmonary veins.
[2022-11-05] MEDS ORDERED: METHYLPREDNISOLONE 125 MG INJ ONE (19:00)
--- NOTE | 2022-11-05 19:35 | ER ---
Nurse's Notes [facility] Name: Zeny Tomlinson Age: 57 yrs Sex: Female : 1965 Arrival Date: 11/05/2022 Time: 16:06 Bed 18 Private MD: Diagnosis: Dyspnea Presentation: 11/05 16:08 Chief complaint: EMS states: toned out to home by family, pt SOB and c/o right arm and eh3 neck pain. Was seen her last week and sent home with antibiotics for lung infection. Ebola Screen: No symptoms or risks identified at this time. Onset of symptoms was November 05, 2022. 16:08 Method Of Arrival: EMS: [facility] 3 16:08 Acuity: MARCELLO 3 eh3 16:08 Coronavirus screen: Vaccine status: Patient reports being unvaccinated. Initial Sepsis eh3 Screen: Does the patient meet any 2 criteria? No. Patient's initial sepsis screen is negative. Does the patient have a suspected source of infection? No. Patient's initial sepsis screen is negative. Risk Assessment: Do you want to hurt yourself or someone else? Patient reports no desire to harm self or others. Triage Assessment: 16:08 General: Appears in no apparent distress. uncomfortable, Behavior is calm, cooperative, eh3 appropriate for age. Pain: Complains of pain in neck Pain radiates to right arm. Neuro: Level of Consciousness is awake, alert, obeys commands, Oriented to person, place, time, situation. Cardiovascular: Capillary refill < 3 seconds Patient's skin is warm and dry. Respiratory: Reports shortness of breath at rest Airway is patent Respiratory effort is even, unlabored, Respiratory pattern is regular, symmetrical, Onset: The symptoms/episode began/occurred last week, the patient has mild shortness of breath. GI: Abdomen is round non-distended. Derm: Skin is pink, warm \T\ dry. Musculoskeletal: Circulation, motion, and sensation intact. Historical: - Allergies: 16:08 No Known Allergies; eh3 - PMHx: 16:08 COPD; eh3 - PSHx: 16:08 Neck sx; pacemaker; eh3 - Immunization history:: Adult Immunizations up to date. - Social history:: Smoking status: unknown. Screenin:15 [facility] ED Fall Risk Assessment (Adult) Score/Fall Risk Level 0 - 2 = Low Risk. Abuse eh3 screen: Denies threats or abuse. Denies injuries from another. Nutritional screening: No deficits noted. Tuberculosis screening: No symptoms or risk factors identified. Assessment: 16:15 Reassessment: No changes from previously documented assessment. See triage assessment. eh3 Cardiovascular: Rhythm is atrial pacer with capture. Respiratory: Airway is patent Respiratory effort is even, unlabored, Breath sounds are clear bilaterally. 17:15 Reassessment: Patient appears in no apparent distress at this time. Patient and/or eh3 family updated on plan of care and expected duration. Pain level reassessed. Patient is alert, oriented x 3, equal unlabored respirations, skin warm/dry/pink. 18:15 Reassessment: Patient appears in no apparent distress at this time. Patient and/or eh3 family updated on plan of care and expected duration. Pain level reassessed. Patient is alert, oriented x 3, equal unlabored respirations, skin warm/dry/pink. 19:15 Reassessment: Patient appears in no apparent distress at this time. Patient and/or eh3 family updated on plan of care and expected duration. Pain level reassessed. Patient is alert, oriented x 3, equal unlabored respirations, skin warm/dry/pink. 19:30 Reassessment: Pt ambulated around hallways approximately 50ft, SpO2 ranged between 3 91-94%. Vital Signs: 16:08 BP 103 / 68; Pulse 89; Resp 18; Temp 98.2; Pulse Ox 100% on R/A; eh3 17:15 BP 105 / 75; Pulse 75; Resp 18; Pulse Ox 100% on R/A; eh3 18:15 BP 113 / 75; Pulse 99; Resp 15; Pulse Ox 100% on R/A; eh3 19:15 BP 123 / 85; Pulse 90; Resp 18; Pulse Ox 96% on R/A; eh3 ED Course: 16:07 Patient arrived in ED. sb4 16:08 [facility] Wood[facility]. sb4 16:08 Bassam Kauffman MD is Attending Physician. sb4 16:08 Karla Lindquist, RN is Primary Nurse. eh3 16:08 Arm band placed on. eh3 16:09 Triage completed. eh3 16:15 Patient has correct armband on for positive identification. Bed in low position. Call eh3 light in reach. Side rails up X2. Provided Education on: Use of call aguiar. Client placed on continuous cardiac and pulse oximetry monitoring. NIBP monitoring applied. 16:15 Maintain EMS IV. Dressing intact. Good blood return noted. Site clean \T\ dry. Gauge \T\ eh 3 site: 20g LFA. 16:56 XRAY Chest (1 view) In Process Unspecified. EDMS 17:37 Chest For PE Angio CT In Process Unspecified. EDMS 19:35 Jose Ramon Munoz MD is Referral Physician. sb4 19:45 No provider procedures requiring assistance completed. IV discontinued, intact, eh3 bleeding controlled, No redness/swelling at site. Pressure dressing applied. Administered Medications: 16:50 Drug: DuoNeb Nebulize (3:1) (2.5 mg - 0.5 mg) 3 ml Route: Nebulizer; eh3 17:00 Follow up: Response: No adverse reaction eh3 18:55 Drug: DuoNeb Nebulize (3:1) (2.5 mg - 0.5 mg) 3 ml Route: Nebulizer; eh3 19:30 Follow up: Response: No adverse reaction eh3 18:55 Drug: MethylPrednisoLONE IVP 125 mg Route: IVP; Site: left forearm; eh3 19:30 Follow up: Response: No adverse reaction eh3 Medication: 19:46 VIS not applicable for this client. eh3 Outcome: 19:35 Discharge ordered by . sb4 19:46 Discharged to home ambulatory. eh3 19:46 Condition: stable 19:46 Discharge instructions given to patient, Instructed on discharge instructions, follow up and referral plans. medication usage, Demonstrated understanding of instructions, follow-up care, medications, Prescriptions given X 1. 19:52 Patient left the ED. eh3 Signatures: Dispatcher [employer] Karla Culp RN RN eh3 Alexia Woody PA-C PAGrantC sb4 Corrections: (The following items were deleted from the chart) 16:15 16:08 Initial Sepsis Screen: Does the patient meet any 2 criteria? eh3 eh3 17:14 16:15 Cardiovascular: Rhythm is sinus rhythm 3 eh3 19:45 17:15 BP 113 / 75; Pulse 99bpm; Resp 15bpm; Pulse Ox 100% RA; eh3 eh3
--- NOTE | 2022-11-05 19:36 | EDPHYS ---
Physician Documentation [facility] Name: Zeny Tomlinson Age: 57 yrs Sex: Female : 1965 Arrival Date: 11/05/2022 Time: 16:06 Bed 18 Private MD: ED Physician Bassam Kauffman HPI: 11/05 16:43 This 57 yrs old Female presents to ER via EMS with complaints of Shortness Of Breath, sb4 Arm Pain. 16:53 The patient has been recently seen at the [facility] Emergency sb4 Department, a couple of weeks ago. Patient complains of chest pain and shortness of breath as well as neck pain and right arm pain. She states the neck pain and right arm pain are chronic but the shortness of breath and chest pain started today. She states it is easier for her to breathe when her neck is flexed and harder to breathe when her neck is extended. She was seen here 2 weeks ago for COPD and discharged with steroids and muscle relaxers. She reports compliance with those medications and has also been doing breathing treatments at home without any relief in symptoms. Historical: - Allergies: 16:08 No Known Allergies; eh3 - PMHx: 16:08 COPD; eh3 - PSHx: 16:08 Neck sx; pacemaker; eh3 - Immunization history:: Adult Immunizations up to date. - Social history:: Smoking status: unknown. ROS: 16:43 Constitutional: Negative for fever, chills, and weight loss, Eyes: Negative for injury, sb4 pain, redness, and discharge, ENT: Negative for injury, pain, and discharge, Abdomen/GI: Negative for abdominal pain, nausea, vomiting, diarrhea, and constipation, Back: Negative for injury and pain, Skin: Negative for injury, rash, and discoloration. 16:43 Neck: Positive for pain with movement. 16:43 Cardiovascular: Positive for chest pain, Negative for edema, orthopnea, palpitations. 16:43 Respiratory: Positive for dyspnea on exertion, shortness of breath, on exertion. wheezing, Negative for hemoptysis, orthopnea, pleurisy. 16:43 MS/extremity: Positive for pain, of the right arm. 16:43 All other systems are negative. Exam: 16:43 Constitutional: This is a well developed, well nourished patient who is awake, alert, sb4 and in no acute distress. Head/Face: Normocephalic, atraumatic. Eyes: Extra-ocular motions intact. Periorbital areas with no swelling, redness, or edema. ENT: Mucous membranes moist. Cardiovascular: Regular rate and rhythm with a normal S1 and S2. Abdomen/GI: Soft, non-tender, no distension. Back: No spinal tenderness. No costovertebral tenderness. Full range of motion. Skin: Warm, dry with normal turgor. Normal color with no rashes, no lesions, and no evidence of cellulitis. MS/ Extremity: Pulses equal, no cyanosis. Neurovascular intact. Full, normal range of motion. Neuro: Awake and alert, GCS 15, oriented to person, place, time, and situation. Cranial nerves II-XII grossly intact. Motor strength 5/5 in all extremities. Sensory grossly intact. Cerebellar exam normal. Normal gait. 16:43 Respiratory: the patient does not display signs of respiratory distress, Respirations: no acute changes, Breath sounds: rhonchi, that are moderate, are scattered. Vital Signs: 16:08 BP 103 / 68; Pulse 89; Resp 18; Temp 98.2; Pulse Ox 100% on R/A; eh3 17:15 BP 105 / 75; Pulse 75; Resp 18; Pulse Ox 100% on R/A; eh3 18:15 BP 113 / 75; Pulse 99; Resp 15; Pulse Ox 100% on R/A; eh3 19:15 BP 123 / 85; Pulse 90; Resp 18; Pulse Ox 96% on R/A; eh3 MDM: 16:08 Patient medically screened. sb4 16:43 Differential diagnosis: asthma, Bronchitis Chronic Obstructive Pulmonary Disease sb4 pneumonia, Pulmonary Embolism Unstable Angina. 19:31 Antibiotic administration: Not indicated, the patient does not have an appreciated sb4 infiltrate, the patient is already taking antibiotics. Data interpreted: Pulse oximetry: on room air is 100 %. Interpretation: normal. The patient's pulmonary embolism risk score was calculated as follows: malignancy Total Score: 0-2 points. This patient was found to be at low risk for a pulmonary embolism by using the Well's assessment criteria. Data reviewed: vital signs, nurses notes, lab test result(s), EKG, radiologic studies, I have discussed the patient's presentation/case with the attending Emergency Department Physician; and as a result, I will discharge patient. Consideration of Admission/Observation Escalation of care including admission/observation considered. Care significantly affected by the following chronic conditions: Chronic Obstructive Pulmonary Disease. Counseling: I had a detailed discussion with the patient and/or guardian regarding: the historical points, exam findings, and any diagnostic results supporting the discharge/admit diagnosis, lab results, radiology results, the need for outpatient follow up, a collar runner, to return to the emergency department if symptoms worsen or persist or if there are any questions or concerns that arise at home. 19:33 ED course: RN ambulated patient and monitored pulse oximetry which was satisfactory. sb4 will dc patient home with antitussives and expectorants and to finish her course of antibiotics. she has an appointment with pulmonology on November 08. I discussed her chest CTA findings with her, that were highly suspicious of malignancy and she understands the importance of follow up. strict return precautions given. 11/05 16:19 Order name: Basic Metabolic Panel; Complete Time: 17:07 sb4 11/05 16:19 Order name: CBC with Diff; Complete Time: 16:56 sb4 11/05 16:19 Order name: D-Dimer; Complete Time: 16:56 sb4 11/05 16:19 Order name: LFT's; Complete Time: 17:07 sb4 11/05 16:19 Order name: Magnesium; Complete Time: 17:07 sb4 11/05 16:19 Order name: NT PRO-BNP; Complete Time: 17:07 sb4 11/05 16:19 Order name: Troponin HS; Complete Time: 17:07 sb4 11/05 16:19 Order name: XRAY Chest (1 view); Complete Time: 17:10 sb4 11/05 16:56 Order name: Chest For PE Angio CT; Complete Time: 18:21 sb4 11/05 16:19 Order name: EKG; Complete Time: 16:20 sb4 11/05 16:19 Order name: Cardiac monitoring; Complete Time: 16:30 sb4 11/05 16:19 Order name: EKG - Nurse/Tech; Complete Time: 17:13 sb4 11/05 16:19 Order name: IV Saline Lock; Complete Time: 16:23 sb4 11/05 16:19 Order name: Labs collected and sent; Complete Time: 16:48 sb4 11/05 16:19 Order name: O2 Per Protocol; Complete Time: 16:30 sb4 11/05 16:19 Order name: O2 Sat Monitoring; Complete Time: 16:30 sb4 11/05 18:40 Order name: Misc. Order: please ambulate and monitor O2; Complete Time: 19:30 sb4 EC:07 Rate is 76 beats/min. Rhythm is regular, Paced. AK interval is normal at 116 msec. QRS sb4 interval is normal at 76 msec. QT interval is normal at 404 msec. Clinical impression: Abnormal EKG without significant change. Interpreted by me. Reviewed by me. Administered Medications: 16:50 Drug: DuoNeb Nebulize (3:1) (2.5 mg - 0.5 mg) 3 ml Route: Nebulizer; 3 17:00 Follow up: Response: No adverse reaction eh3 18:55 Drug: DuoNeb Nebulize (3:1) (2.5 mg - 0.5 mg) 3 ml Route: Nebulizer; 3 19:30 Follow up: Response: No adverse reaction 3 18:55 Drug: MethylPrednisoLONE IVP 125 mg Route: IVP; Site: left forearm; 3 19:30 Follow up: Response: No adverse reaction eh3 Disposition: 11/06 07:54 Co-signature as Attending Physician, Bassam Kauffman MD I agree with the assessment and kdr plan of care. Disposition Summary: 11/05/22 19:35 Discharge Ordered Location: Home sb4 Problem: new sb4 Symptoms: have improved sb4 Condition: Stable sb4 Diagnosis - Dyspnea sb4 Followup: sb4 - With: Jose Ramon Munoz MD - When: 2 - 3 days - Reason: Further diagnostic work-up, Recheck today's complaints, Re-evaluation by your physician Discharge Instructions: - Discharge Summary Sheet sb4 Forms: - Medication Reconciliation Form sb4 - Thank You Letter sb4 - Antibiotic Education sb4 - Prescription Opioid Use sb4 - Patient Portal Instructions sb4 - Leadership Thank You Letter sb4 Prescriptions: - Guaifenesin AC 10-100 mg/5 mL Oral Liquid - take 10 milliliters by ORAL route every 4 hours As needed; 240 milliliter; sb4 Refills: 0, Product Selection Permitted Signatures: Dispatcher [employer] Bassam Pena MD MD kdr Hall Karla, [place] RN eh3 Alexia Woody, ROLA CANELA sb4
[2022-11-05 19:56] VITALS: TEMP 98.2
[2022-11-05 20:02] VITALS: BP 123/85; O2SAT 96
--- NOTE | 2022-11-06 15:28 | EKG ---
Test Date: 2022-11-05 Test Time: 17:04:02 Health And Safety Director: SHUKRI MEASUREMENT RESULTS: Intervals: Rate: 76 NH: 116 QRSD: 76 QT: 404 QTc: 454 [place]: P: 65 NH: 116 QRS: 66 T: 46 INTERPRETIVE STATEMENTS: Electronic atrial pacemaker Septal infarct, age undetermined Abnormal ECG Compared to ECG 10/22/2022 13:49:45 No significant changes Electronically Signed On 11-06-22 15:27:43 CDT by Jimmy Preciado
== END 2022-11-05 19:52 | disposition home or self-care (01) ==
LOC: ER 16:06
DX: R06.00 Dyspnea, unspecified (principal); R07.9 Chest pain, unspecified; M79.601 Pain in right arm; J44.9 Chronic obstructive pulmonary disease, unspecified; Z95.0 Presence of cardiac pacemaker
CPT/HCPCS: 93005; 85025; 80048; 36415; 83735; 85379; 80076; 84484; 83880; 71275; 71045; 94640; 96374; 99285; Q9967; J7613 ×2; J7644 ×2; J2930